=== PATIENT | male | born 1995 | race Caucasian/White ===

== ENCOUNTER 2019-07-10 12:52 | Emergency (ER) | payer SELFPAY ==
[~2019-07-10] VITALS: Ht 182.9 cm; Wt 137.9 kg
[2019-07-10 13:04] VITALS: BP 124/74; Ht 182.9 cm; Wt 137.9 kg
== END 2019-07-10 13:31 | disposition home or self-care (01) ==
LOC: ED 12:52
DX: S00.452A Superficial foreign body of left ear, initial encounter (principal); W45.8XXA Other foreign body or object entering through skin, initial encounter; Y93.89 Activity, other specified; Y92.89 Other specified places as the place of occurrence of the external cause; Y99.8 Other external cause status